=== PATIENT | male | born 1995 | race Caucasian/White ===

== ENCOUNTER 2018-08-30 10:14 | Emergency (ER) | payer MEDICAID, SELFPAY ==
[2018-08-30 10:15] VITALS: BP 140/98; PULSE 97; RESP 18; TEMP 36.8; O2SAT 98; BMI 24.4
--- NOTE | 2018-08-30 11:17 | ED.DCSUM_ITS ---
- ER Visit Summary Date of Service: 08/30/18 Chief Complaint: Sore throat History of Present Illness: The patient is a 22 M who states for the past 2 weeks has had runny nose cough congestion. 2 days ago he began to have throat pain and was painful swallowing as well as talking. He states he looked in the mirror in his right tonsil. Abnormal. He went to the wellness center at the [facility] and had a negative strep test performed. They recommended he come to the emergency department. He notes subjective fever chills and sweats. Generalized myalgias nonproductive cough. Physical Examination: Afebrile vital signs are stable Gen: Well-nourished well-developed Head: Normocephalic atraumatic Eyes: Perrl EOMI ENT: TMs clear no rhinorrhea moist mucous membranes there is bilateral tonsillar enlargement with exudates. There are no palatal petechiae. There is no peritonsillar or retropharyngeal abscess noted. Uvula is midline patient is handling secretions. Neck: Supple anterior and posterior lymphadenopathy that are minimally tender no JVD nontender CVS: Regular rate rhythm no murmurs normal S1-S2 Respiratory: No distress clear to auscultation bilaterally chest nontender Abdomen: Soft nontender nondistended normal bowel sounds no masses Back: Nontender Extremity: Nontender no edema Skin: Normal color no rash Neuro: alert orientated ?3 CN II-XII intact normal strength sensation reflexes gait cerebellar Psych: Normal affect normal mood Test Results: Monospot was negative. Throat culture obtained. Rapid strep was positive. Emergency Department Course and Treatment: Patient received Decadron. I will write him for penicillin. Follow-up with primary care return if worsening or concerns Impression: 1. Strep pharyngitis This note was generated with NPTV dictation software. It may contain incorrect words, spelling, and punctuation that were not noted in review of the chart prior to signing ED Disposition - Plan for ED Patient: Disposition: Home or Assisted Living Instructions: ED Strep Pharyngitis Conf Prescriptions: Penicillin V Potassium 500 mg PO BID #20 tab Referrals: Jacqueline Porter [facility] [GROUP OF PHYSICIANS] - As Needed
[2018-08-30 11:35] LABS: Internal QC Validated? YES +Cl - CLEAR BKGD; Monotest Negative (Negative)
== END 2018-08-30 13:25 | disposition home or self-care (01) ==
PROVIDERS: Emergency Provider Emergency Medicine
DX: J02.0 Streptococcal pharyngitis (principal); Z72.0 Tobacco use
CPT/HCPCS: 86308; 87070; 87880; 99283